=== PATIENT | male | born 1995 | race Caucasian/White ===

== ENCOUNTER 2022-12-22 20:19 | Emergency (ER) | payer SELFPAY ==
[~2022-12-22] VITALS: Ht 170.2 cm; Wt 106.2 kg
[2022-12-22 20:22] VITALS: BP 133/77
[2022-12-22] MEDS ORDERED: AMOX-580 PO (21:10)
[2022-12-22] MEDS ORDERED: amox tr/potassium clavulanate 875/125mg TAB PO ONE (21:10)
== END 2022-12-22 21:17 | disposition home or self-care (01) ==
LOC: ER 20:21
DX: H66.92 Otitis media, unspecified, left ear (principal); Z79.899 Other long term (current) drug therapy
CPT/HCPCS: 99283